=== PATIENT | female | born 1970 | race Caucasian/White ===

== ENCOUNTER 2025-04-14 16:58 | Inpatient (IN) | payer BC, OTHER ==
[2025-04-14 18:06] LABS: MEAN PLATELET VOLUME 8.0 fL (7.1-12.4); PLATELET COUNT,PLT 263 x10(3)uL (151-488); RED BLOOD CELL COUNT 4.51 x10(6)uL (3.60-5.20); RED CELL DISTRIBUTION WIDTH 13.7 % (12.3-16.5); WHITE BLOOD CELL COUNT,WBC 24.8 x10-3/uL (3.0-10.3)
[2025-04-14 18:16] LABS: A/G RATIO 0.9; ALANINE AMINOTRANSFERASE,ALT 99 U/L (12-36); ASPARTATE AMNIOTRANSFERASE,AST 52 IU/L (5-25); BILIRUBIN TOTAL 1.0 mg/dL (0.1-1.3); BLOOD UREA NITROGEN,BUN 7 mg/dL (7-18); CARBON DIOXIDE,CO2 28 mmol/L (21-32); CHLORIDE,CL 96 mmol/L (100-110); CREATININE 0.7 mg/dL (0.55-1.02); EST CRCL DRUG DOSING (CG) 90.53 mL/min; ESTIMATED GFR 101 mL/min (>60); GLUCOSE RANDOM 109 mg/dL (80-116); POTASSIUM,K 2.9 mmol/L (3.5-5.3); PROTEIN TOTAL,TP 6.6 g/dL (6.0-8.0); SODIUM,NA 133 mmol/L (135-145)
[2025-04-14] MEDS: Ketorolac 30 MG/ML SDV IVPUSH ONE (18:16)
[2025-04-14] MEDS ORDERED: Naloxone 0.4 MG/ML SDV IVPUSH PRN (18:39)
[2025-04-14 18:40] LABS: BAND PERCENT MAN 3 % (0-6); LYMPHOCYTES PERCENT MAN 5 % (13-37); MONOCYTES PERCENT MAN 4 % (4-12); SEG NEUTROPHILS PERCENT MAN 88 % (46-82)
[2025-04-14] MEDS: HYDROmorphone 2 MG/ML SDV IVPUSH ONE (19:03)
[2025-04-14] MEDS: Iopamidol 755 Mg/ML 100 ML Bottle IV ONE (19:13)
[2025-04-14 19:18] LABS: GLUCOSE,URINE NORMAL (NORMAL); OCCULT BLOOD,URINE MODERATE (NEGATIVE)
[2025-04-14 19:28] LABS: APPEARANCE,URINE CLEAR (CLEAR); SQUAMOUS EPITHELIAL CELLS,UR FEW (NS,R,O)
[2025-04-14] MEDS: Potassium Chloride 20 MEQ in Premix Bag 1 BAG IV ONE (19:33)
[2025-04-15] MEDS: HYDROmorphone 2 MG/ML SDV IVPUSH PRN ×2 (05:53→14:44)
[2025-04-15 07:04] LABS: MEAN PLATELET VOLUME 8.5 fL (7.1-12.4); PLATELET COUNT,PLT 267 x10(3)uL (151-488); RED BLOOD CELL COUNT 4.04 x10(6)uL (3.60-5.20); RED CELL DISTRIBUTION WIDTH 13.5 % (12.3-16.5); WHITE BLOOD CELL COUNT,WBC 22.3 x10-3/uL (3.0-10.3)
[2025-04-15 07:12] LABS: A/G RATIO 0.8; ALANINE AMINOTRANSFERASE,ALT 70 U/L (12-36); ASPARTATE AMNIOTRANSFERASE,AST 35 IU/L (5-25); BILIRUBIN TOTAL 1.0 mg/dL (0.1-1.3); BLOOD UREA NITROGEN,BUN 9 mg/dL (7-18); CARBON DIOXIDE,CO2 29 mmol/L (21-32); CHLORIDE,CL 102 mmol/L (100-110); CREATININE 0.8 mg/dL (0.55-1.02); EST CRCL DRUG DOSING (CG) 79.21 mL/min; ESTIMATED GFR 86 mL/min (>60); GLUCOSE RANDOM 80 mg/dL (80-116); POTASSIUM,K 3.0 mmol/L (3.5-5.3); PROTEIN TOTAL,TP 5.9 g/dL (6.0-8.0); SODIUM,NA 138 mmol/L (135-145)
[2025-04-15 07:35] LABS: LYMPHOCYTES PERCENT MAN 7 % (13-37); MONOCYTES PERCENT MAN 5 % (4-12); SEG NEUTROPHILS PERCENT MAN 88 % (46-82)
[2025-04-15] MEDS: NS + KCl 20mEq/L 1,000 ML IV SCH (11:00)
[2025-04-15] MEDS: Gadoteridol 279.3 MG/ML 20 ML SDV IV ONE (14:15)
[2025-04-15] MEDS: Ondansetron 4 MG/2 ML SDV IVPUSH PRN (18:46)
[2025-04-15] MEDS: Sodium Chloride 0.9% 10 ML Syringe FLUSH PRN (21:55)
[2025-04-16 06:10] LABS: MEAN PLATELET VOLUME 8.6 fL (7.1-12.4); PLATELET COUNT,PLT 252 x10(3)uL (151-488); RED BLOOD CELL COUNT 4.07 x10(6)uL (3.60-5.20); RED CELL DISTRIBUTION WIDTH 13.1 % (12.3-16.5); WHITE BLOOD CELL COUNT,WBC 21.9 x10-3/uL (3.0-10.3)
[2025-04-16 06:20] LABS: A/G RATIO 0.7; ALANINE AMINOTRANSFERASE,ALT 52 U/L (12-36); ASPARTATE AMNIOTRANSFERASE,AST 29 IU/L (5-25); BILIRUBIN TOTAL 0.8 mg/dL (0.1-1.3); BLOOD UREA NITROGEN,BUN 9 mg/dL (7-18); CARBON DIOXIDE,CO2 27 mmol/L (21-32); CHLORIDE,CL 105 mmol/L (100-110); CREATININE 0.6 mg/dL (0.55-1.02); EST CRCL DRUG DOSING (CG) 105.61 mL/min; ESTIMATED GFR 105 mL/min (>60); GLUCOSE RANDOM 87 mg/dL (80-116); POTASSIUM,K 3.4 mmol/L (3.5-5.3); PROTEIN TOTAL,TP 5.8 g/dL (6.0-8.0); SODIUM,NA 139 mmol/L (135-145)
[2025-04-16 06:27] LABS: LYMPHOCYTES PERCENT MAN 2 % (13-37); MONOCYTES PERCENT MAN 5 % (4-12); SEG NEUTROPHILS PERCENT MAN 93 % (46-82)
[2025-04-16 09:00] LABS: GLUCOSE,URINE NORMAL (NORMAL); OCCULT BLOOD,URINE NEGATIVE (NEGATIVE)
[2025-04-16 09:02] LABS: APPEARANCE,URINE CLEAR (CLEAR); SQUAMOUS EPITHELIAL CELLS,UR FEW (NS,R,O)
[2025-04-16] MEDS: NS + KCl 20mEq/L 1,000 ML IV SCH (23:45)
[2025-04-17 06:49] LABS: MEAN PLATELET VOLUME 9.0 fL (7.1-12.4); PLATELET COUNT,PLT 295 x10(3)uL (151-488); RED BLOOD CELL COUNT 4.07 x10(6)uL (3.60-5.20); RED CELL DISTRIBUTION WIDTH 12.7 % (12.3-16.5); WHITE BLOOD CELL COUNT,WBC 18.9 x10-3/uL (3.0-10.3)
[2025-04-17 07:06] LABS: A/G RATIO 0.7; ALANINE AMINOTRANSFERASE,ALT 51 U/L (12-36); ASPARTATE AMNIOTRANSFERASE,AST 35 IU/L (5-25); BILIRUBIN TOTAL 0.7 mg/dL (0.1-1.3); BLOOD UREA NITROGEN,BUN 5 mg/dL (7-18); CARBON DIOXIDE,CO2 29 mmol/L (21-32); CHLORIDE,CL 102 mmol/L (100-110); CREATININE 0.6 mg/dL (0.55-1.02); EST CRCL DRUG DOSING (CG) 105.61 mL/min; ESTIMATED GFR 105 mL/min (>60); GLUCOSE RANDOM 107 mg/dL (80-116); POTASSIUM,K 3.2 mmol/L (3.5-5.3); PROTEIN TOTAL,TP 6.1 g/dL (6.0-8.0); SODIUM,NA 138 mmol/L (135-145)
[2025-04-17 07:24] LABS: BAND PERCENT MAN 2 % (0-6); LYMPHOCYTES PERCENT MAN 9 % (13-37); MONOCYTES PERCENT MAN 6 % (4-12); SEG NEUTROPHILS PERCENT MAN 83 % (46-82)
[2025-04-17] MEDS: Potassium Chloride 20 MEQ Tab.ER PO SCH (09:44)
[2025-04-17 18:06] LABS: APPEARANCE,URINE CLEAR (CLEAR); GLUCOSE,URINE NORMAL (NORMAL); OCCULT BLOOD,URINE NEGATIVE (NEGATIVE)
[2025-04-18 06:46] LABS: MEAN PLATELET VOLUME 8.5 fL (7.1-12.4); PLATELET COUNT,PLT 306 x10(3)uL (151-488); RED BLOOD CELL COUNT 4.28 x10(6)uL (3.60-5.20); RED CELL DISTRIBUTION WIDTH 12.4 % (12.3-16.5); WHITE BLOOD CELL COUNT,WBC 17.7 x10-3/uL (3.0-10.3)
[2025-04-18 06:55] LABS: A/G RATIO 0.7; ALANINE AMINOTRANSFERASE,ALT 59 U/L (12-36); ASPARTATE AMNIOTRANSFERASE,AST 38 IU/L (5-25); BILIRUBIN TOTAL 0.7 mg/dL (0.1-1.3); CARBON DIOXIDE,CO2 32 mmol/L (21-32); CHLORIDE,CL 99 mmol/L (100-110); CREATININE 0.6 mg/dL (0.55-1.02); EST CRCL DRUG DOSING (CG) 105.61 mL/min; ESTIMATED GFR 105 mL/min (>60); GLUCOSE RANDOM 107 mg/dL (80-116); POTASSIUM,K 3.0 mmol/L (3.5-5.3); PROTEIN TOTAL,TP 6.6 g/dL (6.0-8.0); SODIUM,NA 138 mmol/L (135-145)
[2025-04-18 07:04] LABS: BLOOD UREA NITROGEN,BUN < 5 mg/dL (7-18)
[2025-04-18] MEDS ORDERED: Iopamidol 755 Mg/ML 100 ML Bottle IV SCH (07:15)
[2025-04-18 07:30] LABS: LYMPHOCYTES PERCENT MAN 8 % (13-37); MONOCYTES PERCENT MAN 8 % (4-12); SEG NEUTROPHILS PERCENT MAN 84 % (46-82)
[2025-04-18] MEDS: Iopamidol 755 Mg/ML 100 ML Bottle IV SCH (07:53)
[2025-04-18] MEDS: Potassium Chloride 20 MEQ Tab.ER PO SCH (13:33)
[2025-04-19 06:38] LABS: MEAN PLATELET VOLUME 8.9 fL (7.1-12.4); PLATELET COUNT,PLT 366 x10(3)uL (151-488); RED BLOOD CELL COUNT 4.25 x10(6)uL (3.60-5.20); RED CELL DISTRIBUTION WIDTH 12.4 % (12.3-16.5); WHITE BLOOD CELL COUNT,WBC 15.3 x10-3/uL (3.0-10.3)
[2025-04-19 07:10] LABS: EOSINOPHILS PERCENT MAN 1 % (0-5); LYMPHOCYTES PERCENT MAN 10 % (13-37); MONOCYTES PERCENT MAN 8 % (4-12); SEG NEUTROPHILS PERCENT MAN 81 % (46-82)
[2025-04-19 07:15] LABS: A/G RATIO 0.7; ALANINE AMINOTRANSFERASE,ALT 66 U/L (12-36); ASPARTATE AMNIOTRANSFERASE,AST 39 IU/L (5-25); BILIRUBIN TOTAL 0.5 mg/dL (0.1-1.3); CARBON DIOXIDE,CO2 31 mmol/L (21-32); CHLORIDE,CL 100 mmol/L (100-110); CREATININE 0.7 mg/dL (0.55-1.02); EST CRCL DRUG DOSING (CG) 90.53 mL/min; ESTIMATED GFR 101 mL/min (>60); GLUCOSE RANDOM 114 mg/dL (80-116); POTASSIUM,K 3.1 mmol/L (3.5-5.3); PROTEIN TOTAL,TP 6.1 g/dL (6.0-8.0); SODIUM,NA 138 mmol/L (135-145)
[2025-04-19 07:23] LABS: BLOOD UREA NITROGEN,BUN < 5 mg/dL (7-18)
== END 2025-04-19 10:25 | disposition home or self-care (01) | DRG 440 ==
LOC: FB.ED 16:58 → FB.MS 21:13 → OBSVTOIN 04-15 09:44
PROVIDERS: ADMIT Family Medicine; ATTEND Family Medicine
DX: K85.80 Other acute pancreatitis without necrosis or infection (principal); I10 Essential (primary) hypertension; K21.9 Gastro-esophageal reflux disease without esophagitis; F41.9 Anxiety disorder, unspecified; F32.A Depression, unspecified; E87.6 Hypokalemia; N63.10 Unspecified lump in the right breast, unspecified quadrant; K80.20 Calculus of gallbladder without cholecystitis without obstruction; Z88.8 Allergy status to other drugs, medicaments and biological substances; Z88.0 Allergy status to penicillin; Z79.899 Other long term (current) drug therapy
CPT/HCPCS: 36415; 71260; 74177; 74183; 80053; 81001; 81003; 82150; 83605; 83690; 85025; 86140; 87426-QW; 99285; A9270-GY; A9576; J1171; J1885; J2405; J2543; J3480; J7030; Q9967

== ENCOUNTER 2025-06-29 09:52 | Day surgery (SDC) | payer OTHER ==
[~2025-06-29 09:52] MED LIST: Sodium Chloride 0.9% 10 ML Syringe FLUSH PRN
[2025-06-29] MEDS ORDERED: diphenhydrAMINE 50 MG/ML SDV IVPUSH ONE (09:53)
[2025-06-29] MEDS ORDERED: Ondansetron 4 MG/2 ML SDV IVPUSH ONE (09:53)
[2025-06-29] MEDS ORDERED: Ketorolac 30 MG/ML SDV IVPUSH ONE (09:53)
[2025-06-29] MEDS ORDERED: Rocuronium 100 MG/10 ML MDV IV ONE (09:53)
[2025-06-29] MEDS ORDERED: Lactated Ringers 1,000 ML IV ONE (09:53)
[2025-06-29] MEDS ORDERED: Dexamethasone 4 MG/ML 5 ML MDV IVPUSH ONE (09:53)
[2025-06-29] MEDS ORDERED: Midazolam 1 MG/ML 2 ML SDV IV ONE (09:53)
[2025-06-29] MEDS ORDERED: fentaNYL 100 MCG/2 ML SDV IV ONE (09:53)
[2025-06-29] MEDS ORDERED: Ketamine 500 mg/10 ML MDV IV ONE (09:53)
[2025-06-29] MEDS: Lactated Ringers 1,000 ML IV SCH (10:37)
== END 2025-06-29 14:40 | disposition home or self-care (01) ==
LOC: FB.SDS 09:52
PROVIDERS: ATTEND Surgery
DX: K80.10 Calculus of gallbladder with chronic cholecystitis without obstruction (principal); Z79.899 Other long term (current) drug therapy
CPT/HCPCS: 00790; 47562; 88304; A9270; J0665; J0690; J1100; J1200; J1885; J2003; J2250; J2405; J3010; J3490; J7120